=== PATIENT | female | born 2000 | race Caucasian/White ===

== ENCOUNTER 2021-04-25 16:15 | Emergency (ER) | payer SELFPAY ==
[~2021-04-25] VITALS: Ht 165.1 cm; Wt 49.0 kg
--- NOTE | 2021-04-25 16:18 | NUR ---
Patient ambulated to bed 6. RN evaluating the patient at bedside.
[2021-04-25 16:21] VITALS: BP 117/63
--- NOTE | 2021-04-25 16:21 | NUR ---
20/F BIB self c/o sunburn all over her body x3days. Pt denies fever, chills, n/v/d. denies PMH NKA
--- NOTE | 2021-04-25 16:30 | NUR ---
REGINO Gibbs is evaluating the patient at bedside.
[2021-04-25] MEDS ORDERED: COLL226C TP (16:38)
[2021-04-25 16:43] VITALS: BP 117/63
--- NOTE | 2021-04-25 16:44 | NUR ---
Patient discharged with v/s stable. Written and verbal after care instructions given and explained. Patient alert, oriented and verbalized understanding of instructions. Ambulatory with steady gait. All questions addressed prior to discharge. ID band removed. Patient advised to follow up with PMD. Rx of COLLOIDAL OATMEAL given. Patient educated on indication of medication including possible reaction and side effects. Opportunity to ask questions provided and answered.
== END 2021-04-25 16:44 | disposition home or self-care (01) ==
LOC: MED 16:15
DX: L55.9 Sunburn, unspecified (principal); Z79.899 Other long term (current) drug therapy
CPT/HCPCS: 99282

== ENCOUNTER 2023-08-14 17:59 | Emergency (ER) | payer OTHER ==
[~2023-08-14] VITALS: Ht 162.6 cm; Wt 51.3 kg
[~2023-08-14 17:59] MED LIST: COLL226C TP
[2023-08-14 18:19] VITALS: BP 124/74; PULSE 79; RESP 18; TEMP 97.8; O2SAT 98
[2023-08-14 19:37] LABS: BASOPHILS % (AUTO) 0.8 % (0.0-2.0); EOSINOPHILS # (AUTO) 0.2 K/uL (0-0.4); EOSINOPHILS % (AUTO) 3.4 % (0.0-4.0); HEMATOCRIT 39.7 % (36-48); HEMOGLOBIN 13.5 g/dL (12.0-16.0); LYMPHOCYTES # (AUTO) 1.7 K/uL (2.5-16.5); LYMPHOCYTES % (AUTO) 29.9 % (20.5-51.1); MEAN CORPUSCULAR HEMOGLOBIN 30 pg (27-31); MEAN CORPUSCULAR HGB CONC 34 g/dL (33-37); MEAN CORPUSCULAR VOLUME 87.8 fL (80-94); MONOCYTES # (AUTO) 0.3 K/uL (0.8-1.0); NEUTROPHILS # (AUTO) 3.4 K/uL (1.8-7.7); NEUTROPHILS % (AUTO) 59.9 % (42.2-75.2); PLATELET COUNT (AUTO) 237 K/uL (140-450); RED BLOOD CELL COUNT(AUTO) 4.52 MIL/uL (4.20-5.40); RED CELL DISTRIBUTION WIDTH 12.9 % (11.6-13.7); WHITE BLOOD COUNT (AUTO) 5.6 K/uL (4.8-10.8)
[2023-08-14 19:42] LABS: ANION GAP 14.8 (8-16); CALCIUM 9.1 mg/dL (8.5-10.1); CARBON DIOXIDE 26.3 mmol/L (21-32); CREATININE 0.7 mg/dL (0.6-1.3); POTASSIUM 4.1 mmol/L (3.5-5.1)
[2023-08-14 21:53] VITALS: BP 118/71; PULSE 73; RESP 18; TEMP 97.8; O2SAT 98
== END 2023-08-14 21:53 | disposition home or self-care (01) ==
LOC: MED 17:59
DX: R51.9 Headache, unspecified (principal); R42 Dizziness and giddiness; Z20.822 Contact with and (suspected) exposure to COVID-19; Z79.899 Other long term (current) drug therapy
CPT/HCPCS: 36415; 80048; 81025; 85025; 99283